=== PATIENT | male | born 1995 | race Hispanic/Latino ===

== ENCOUNTER 2022-05-03 19:31 | Emergency (ER) | payer OTHER ==
[~2022-05-03] VITALS: Ht 175.3 cm; Wt 83.9 kg
[2022-05-03] MEDS ORDERED: CEPHALEXIN 250 MG CAPSULE ONE (20:20)
[2022-05-03] MEDS ORDERED: HYDROCODONE/ACETAMINOPHEN 10/325 MG TAB PO ONE (20:30)
[2022-05-03] MEDS ORDERED: TETANUS/DIPHTHERIA TOXOID [ADULT] 0.5 ML VIAL IM ONE (20:30)
[2022-05-03] MEDS ORDERED: CEPHALEXIN 500 MG CAPSULE PO ONE (20:30)
[2022-05-03] MEDS ORDERED: IBUP-2071 PO (20:39)
[2022-05-03] MEDS ORDERED: CEPH500B PO (20:39)
[2022-05-03 20:56] VITALS: BP 123/74
== END 2022-05-03 21:13 | disposition home or self-care (01) ==
LOC: EDH 19:31
DX: S61.300A Unspecified open wound of right index finger with damage to nail, initial encounter (principal); S61.302A Unspecified open wound of right middle finger with damage to nail, initial encounter; S60.131A Contusion of right middle finger with damage to nail, initial encounter; Z79.1 Long term (current) use of non-steroidal anti-inflammatories (NSAID); X58.XXXA Exposure to other specified factors, initial encounter; Y93.89 Activity, other specified; Y92.89 Other specified places as the place of occurrence of the external cause; Y99.8 Other external cause status; Z88.6 Allergy status to analgesic agent
CPT/HCPCS: 73140; 90471; 90714